=== PATIENT | female | born 1980 | race Caucasian/White ===

== ENCOUNTER 2018-05-31 18:24 | Emergency (ER) | payer BC ==
[2018-05-31 18:29] VITALS: BMI 22.8
--- NOTE | 2018-05-31 18:29 | PDOC ---
History of Present Illness - General Chief Complaint: Palpitations Stated Complaint: Palpitations Time Seen by Provider: 05/31/18 18:29 History Source: Patient Exam Limitations: No Limitations - History of Present Illness Initial Comments: 05/31/18 19:06 Pt is a 38yo F with PMH of PUD presenting to ED with complaints of palpitations , SOB and a pinching sensation in her chest which started earlier this evening. Pt states that she has had similar symptoms in the past since March 2018 after she witnessed her son having a seizure in the car. She went to [facility] ED 2 months ago with similar complaints and was discharged. Right now pt says she is not experiencing the palpitations or SOB but still has the pinchign sensation which is scattered over her chest. Denies fevers, chills, cough, pain/swelling in legs, n/v/d, syncope, headache, changes in vision. LMP May 15. Uses Nuvaring. Drinks caffeine free tea daily. Denies drug use. PMH: PUD PSH: none Meds: Prilosec Allergies: Nkda Social: denies Past History - Past Medical History Allergies/Adverse Reactions: Allergies Allergy/AdvReac Type Severity Reaction Status Date / Time No Known Allergies Allergy Verified 05/31/18 18:27 Home Medications: Ambulatory Orders NK [No Known Home Medication] 05/31/18 Cardiac Disorders: Yes (palp (neg workup)) COPD: No - Suicide/Smoking/Psychosocial Hx Smoking History: Never smoked Review of Systems - Review of Systems Constitutional: No: Chills, Fever, Loss of Appetite, Weakness HEENTM: No: Recent change in vision Respiratory: Yes: Shortness of Breath. No: Cough, Orthopnea, Wheezing Cardiac (ROS): Yes: Chest Pain, Palpitations. No: Edema, Lightheadedness, Syncope, Chest Tightness ABD/GI: No: Blood Streaked Bowels, Diarrhea, Nausea, Vomiting : No: Symptoms Reported Musculoskeletal: No: Symptoms Reported Integumentary: No: Symptoms Reported Neurological: No: Headache, Numbness, Tingling Endocrine: No: Intolerance to Cold, Intolerance to Heat *Physical Exam - Vital Signs Last Vital Signs Temp Pulse Resp BP Pulse Ox 105 H 18 125/102 H 100 05/31/18 18:27 05/31/18 18:27 05/31/18 18:27 05/31/18 18:27 - Physical Exam General Appearance: Yes: Nourished, Appropriately Dressed, Other (Tearful) HEENT: positive: EOMI, BRET, Normal ENT Inspection Neck: positive: Trachea midline, Normal Thyroid, Supple. negative: Lymphadenopathy (R), Lymphadenopathy (L) Respiratory/Chest: positive: Lungs Clear, Normal Breath Sounds. negative: Chest Tender, Crackles, Rales, Rhonchi, Stridor, Wheezing Cardiovascular: positive: Regular Rhythm, Regular Rate, S1, S2. negative: Edema , JVD, Murmur Vascular Pulses: Carotid (R): 2+, Carotid (L): 2+, Dorsalis-Pedis (R): 2+, Doralis-Pedis (L): 2+ Gastrointestinal/Abdominal: positive: Normal Bowel Sounds, Soft. negative: Guarding, Rebound, Tenderness Musculoskeletal: negative: CVA Tenderness Extremity: positive: Normal Capillary Refill Integumentary: positive: Normal Color, Dry, Warm Neurologic: positive: pediatric registered nurse II-XII NML intact, Fully Oriented, Alert, Normal Mood/ Affect, Normal Response, Motor Strength 5/5 Moderate Sedation - Procedure Monitoring Vital Signs: Procedure Monitoring Vital Signs Temperature Pulse Rate 105 H 05/31/18 18:27 Respiratory Rate 18 05/31/18 18:27 Blood Pressure 125/102 H 05/31/18 18:27 O2 Sat by Pulse Oximetry (%) 100 05/31/18 18:27 ED Treatment Course - LABORATORY CBC & Chemistry Diagram: 05/31/18 18:44 05/31/18 18:44 Medical Decision Making - Medical Decision Making 05/31/18 19:10 Pt is a 38yo F with PMH of PUD presenting to ED with complaints of palpitations , SOB and a pinching sensation in her chest which started earlier this evening. Vitals: tachycardia at 105, BP 125/102 PE: benign Ddx includes but not limited to ACS, PE, PNA, electrolyte abnormality, metabolic disturbance, anxiety, GERD -EKG: NSR. no ALIZE or depressions. HR 92 -Labs: cbc, cmp, trop, tsh, serum , d-dimer -CXR if negative 05/31/18 20:13 Serum negative. CXR ordered. Pt given 0.5 Xanax. All labs wnl. D-dimer negative. Pt does not have acute process. CXR normal, Lab normal. Low suspicions for PE, ACS, dissection, infectious process. Will repeat vital signs and DC home. Repeat vitals wnl. Pt has PMD and can follow up. Given strict return precautions. *DC/Admit/Observation/Transfer Diagnosis at time of Disposition: Palpitations - Discharge Dispostion Disposition: HOME Condition at time of disposition: Improved Decision to Admit order: No - Referrals - Patient Instructions Printed Discharge Instructions: DI for Palpitations Additional Instructions: You were seen in the emergency room for palpitations. All of the blood tests are normal. The EKG is also normal. I do not know the exact cause of your symptoms but everything is OK with your heart and lungs. I recommend making an appointment with your primary care doctor in the next week so that you can get further evaluation and management for the palpitations and pinches. You should talk to your doctor about referrals to other specialists or medications you can take to help. Come back to the emergency room if palpitations get worse, you have chest pain, you feel short of breath, you develop fever, you pass out or if any new concerning symptom develops - Post Discharge Activity
--- NOTE | 2018-05-31 18:48 | PDOC ---
Attending Attestation - Resident Resident Name: KarenAzalia - ED Attending Attestation I have performed the following: I have examined & evaluated the patient, The case was reviewed & discussed with the resident, I agree w/resident's findings & plan - [facility] HPI: 05/31/18 19:17 [id number], with a significant past medical history of PUD and GERD on Omeprazole, diet compliant, who presents to the emergency department with, palpitations and associated chest pain described as pinching sensation in her chest and body. palpitations lasted several minutes, since resolved and no longer having cp. Patient notes her symptoms have been ongoing since February when she believed her son was having a seizure in the backseat. She endorses having a negative outpatient cardiology workup done at [facility] last month. While in the ED, the patient notes her symptoms have resolved. Denies caffeine or otc herbal meds intake. Uses nuva ring for contraception, LMP 05/15/18 No leg pain/swelling, travel history or immobilization; no ribeiro/dizziness, cough or congestion, cp, sob, AP, n/v, syncope or back pain. Allergies: None Past Medical History: PUD and GERD. Social history: Lives with family. No smoking. No alcohol. No illicit drugs. Surgical history: None - Physicial Exam PE: 05/31/18 19:03 mildly anxious, tearful; PERRL, EOMI, MMM, nl conjunctiva, anicteric; neck supple. lungs clear, RRR, abdomen soft nontender. PATTERSON x4, no focal neuro deficits. No peripheral edema. normal color for ethnicity, [facility]. 05/31/18 19:15 - Medical Decision Making 05/31/18 19:18 I, Tootie Roman MD, attest that this document has been prepared under my direction and personally reviewed by me in its entirety. I further attest, that it accurately reflects all work, treatment, procedures and medical decision -making performed by me. See HPI for details DDx chest pain: ACS, coronary vasospasm, arrhythmia, unstable angina, PE, dissection, PUD, esophageal spasm, GERD, gastritis, costochondritis, pleurisy, dehydration, electrolyte/metabolic derangements, anxiety Vital signs reviewed, mildly anxious with elevated BP and HR in 90-100s. Prior notes reviewed, including admissions, discharges and consultations. laboratory results and imaging reviewed, basic labs and lytes wnl, notable for_ . dimer_neg, so unlikely dissection or PE. Cardiac panel_neg trop x1, reassuring less likely cardiac/angina EKG normal sinus rhythm, no interval abnormalities, narrow QRS, ST and T wave segments and morphology normal. HEART score zero, low suspicion/risk for MACE at 30days <1.7% ED course: xanax for anxiolysis, as pt very anxious. repeat VS normalizing. feels improved, reassurance provided PCP followup, anxiety management, stress reduction and return precautions. 05/31/18 19:21 05/31/18 19:48 Heart Score/ECG Review - History History: Slightly suspicious - Electrocardiogram EKG: Normal - Age Age: </= 45 - Risk Factors Based on the list above the patient has:: No risk factors known - Troponin Troponin: </= normal limit - Score Heart Score - Total: 0 - ECG Impressions Normal ECG: Yes Comment:: 05/31/18 19:21 EKG normal sinus rhythm, no interval abnormalities, narrow QRS, ST and T wave segments and morphology normal.
[2018-05-31 19:01] LABS: BASO % 0.7 % (0-2.0); EOS % 3.6 % (0-4.5); HEMOGLOBIN 12.3 GM/dL (10.7-15.3); LYMPH % 22.3 % (8-40); MEAN CELL VOLUME 90.9 fl (80-96); MEAN PLT VOLUME 9.8 fl (7.5-11.1); NEUT % 67.4 % (42.8-82.8); PLATELET COUNT 265 K/MM3 (134-434); RBC 3.96 M/mm3 (3.60-5.2); RDW 13.7 % (11.6-15.6); WHITE BLOOD COUNT 9.8 K/mm3 (4.0-10.0)
[2018-05-31] MEDS ORDERED: ALPRAZolam 0.25 MG TABLET PO ONE (19:14)
[2018-05-31] MEDS ORDERED: ALPRAZolam 0.25 MG TABLET ONE (19:26)
[2018-05-31 19:39] LABS: ALBUMIN 3.4 g/dl (3.4-5.0); ALK PHOS 47 U/L (45-117); ANION GAP 10 MMOL/L (8-16); BILIRUBIN,TOTAL 0.1 mg/dL (0.2-1); BLOOD UREA NITROGEN 7 mg/dL (7-18); CALCIUM 8.6 mg/dL (8.5-10.1); CHLORIDE 110 mmol/L (98-107); CO2 21 mmol/L (21-32); CREATININE 0.7 mg/dL (0.55-1.3); GLUCOSE,RANDOM 87 mg/dL (74-106); SGPT/ALT 21 U/L (13-61); SODIUM 141 mmol/L (136-145); TOT PROT 7.1 g/dl (6.4-8.2)
[2018-05-31 19:40] LABS: POTASSIUM 3.9 mmol/L (3.5-5.1); SGOT/AST 16 U/L (15-37)
[2018-05-31 20:27] VITALS: BP 125/69; PULSE 87
--- NOTE | 2018-06-02 19:30 | EKG ---
Test Reason : Blood Pressure : / mmHG Vent. Rate : 091 BPM Atrial Rate : 091 BPM P-R Int : 142 ms QRS Dur : 088 ms QT Int : 370 ms P-R-T Axes : 073 030 039 degrees QTc Int : 455 ms NORMAL SINUS RHYTHM NORMAL ECG NO PREVIOUS ECGS AVAILABLE Confirmed by MARK COSME MD ([id number]) on 06/02/2018 7:29:50 PM Referred By: Confirmed By:MARK COSME MD
== END 2018-05-31 20:36 | disposition home or self-care (01) ==
LOC: JER 18:24
DX: R00.2 Palpitations (principal)
CPT/HCPCS: 36415; 71046-TC-FY; 80053; 84443; 84484; 84703; 85025; 85379; 93005; 93010; 99283-25

== ENCOUNTER 2018-09-11 19:32 | Emergency (ER) | payer BC ==
--- NOTE | 2018-09-11 19:35 | PDOC ---
Rapid Medical Evaluation Time Seen by Provider: 09/11/18 19:33 Medical Evaluation: Allergies Allergy/AdvReac Type Severity Reaction Status Date / Time No Known Allergies Allergy Verified 05/31/18 18:27 09/11/18 19:33 I have performed a brief in-person evaluation of this patient. The patient presents with a chief complaint of: Chest tightness w/ sob and palpitations today. Had similar sxs last week that resolved. Was seen in ED for same and had neg w/u including dimer and TSH. Has since been seen by her pmd and dx w/ possible anxiety. Was referred to cards and had neg Echo per pt. Due for stress testing in 2 weeks Pertinent physical exam findings:Appears anxious, stable I have ordered the following:ekg The patient will proceed to the ED for further evaluation Discharge Disposition - Diagnosis Palpitations - Referrals - Patient Instructions - Post Discharge Activity
[2018-09-11 19:37] VITALS: TEMP 98; BMI 23.9
--- NOTE | 2018-09-11 19:42 | PDOC ---
Rapid Medical Evaluation Time Seen by Provider: 09/11/18 19:33 Medical Evaluation: Allergies Allergy/AdvReac Type Severity Reaction Status Date / Time No Known Allergies Allergy Verified 05/31/18 18:27 Vital Signs Temp Pulse Resp BP Pulse Ox 98.0 F 85 16 124/77 100 09/11/18 19:33 09/11/18 19:33 09/11/18 19:33 09/11/18 19:33 09/11/18 19:33 09/11/18 19:39 have performed a brief in-person evaluation of this patient. The patient presents with a chief complaint of: Pertinent physical exam findings: I have ordered the following: The patient will proceed to the ED for further evaluation Discharge Disposition - Diagnosis Palpitations - Referrals - Patient Instructions - Post Discharge Activity
[2018-09-11] MEDS ORDERED: hydrOXYzine PAMOATE 25 MG CAPSULE (FP) PO ONE (20:11)
[2018-09-11 20:21] LABS: BASO % 0.8 % (0-2.0); EOS % 14.1 % (0-4.5); HEMATOCRIT 39.9 % (32.4-45.2); HEMOGLOBIN 13.3 GM/dL (10.7-15.3); LYMPH % 26.2 % (8-40); MCHC 33.4 g/dl (32.0-36.0); MEAN CELL VOLUME 89.9 fl (80-96); MEAN PLT VOLUME 9.5 fl (7.5-11.1); NEUT % 51.9 % (42.8-82.8); PLATELET COUNT 326 K/MM3 (134-434); RBC 4.44 M/mm3 (3.60-5.2); RDW 13.6 % (11.6-15.6); WHITE BLOOD COUNT 9.8 K/mm3 (4.0-10.0)
--- NOTE | 2018-09-11 20:26 | PDOC ---
History of Present Illness - General Chief Complaint: Chest Pain Stated Complaint: CHEST PAIN Time Seen by Provider: 09/11/18 19:33 History Source: Patient Exam Limitations: Clinical Condition - History of Present Illness Initial Comments: 09/11/18 20:23 Patient with no significant past medical history present with complaint of chest tightness, shortness of breath, palpitation, aching abdominal pain and funny feeling in her throat since this morning. Patient reported she has been feeling symptoms intermittently for 4 months now. The patient was seen 4 months ago for symptoms and all workup was negative. Patient be followed up by cardiology and reports seeing maintenance helper 6 days ago and echogram was done which was normal. Patient reported she has been told by multiple providers diet symptoms is from anxiety. Patient is not taking any medication for anxiety or any other symptoms. Denies numbness or tingling sensation, dizziness, nausea or vomiting. Denies any other symptoms Timing/Duration: other (12hrs) Past History - Past Medical History Allergies/Adverse Reactions: Allergies Allergy/AdvReac Type Severity Reaction Status Date / Time No Known Allergies Allergy Verified 05/31/18 18:27 Home Medications: Ambulatory Orders Hydroxyzine Pamoate 25 mg PO Q6H PRN #20 capsule 09/11/18 Cardiac Disorders: Yes (palp (neg workup)) COPD: No - Immunization History Immunization Up to Date: Yes - Suicide/Smoking/Psychosocial Hx Smoking History: Never smoked Have you smoked in the past 12 months: No Information on smoking cessation initiated: No Hx Alcohol Use: No Drug/Substance Use Hx: No Review of Systems - Review of Systems Able to Perform ROS?: Yes Is the patient limited Turkish proficient: No Constitutional: No: Chills, Fever, Malaise, Weakness HEENTM: No: Symptoms Reported, See HPI, Eye Pain, Blurred Vision, Tearing, Recent change in vision, Double Vision, Cataracts, Ear Pain, Ocular Prothesis, Ear Discharge, Nose Pain, Nose Congestion, Tinnitus, Nose Bleeding, Hearing Loss , Throat Pain, Throat Swelling, Mouth Pain, Dental Problems, Difficulty Swallowing, Mouth Swelling, Other Respiratory: Yes: Symptoms reported, See HPI, Shortness of Breath, SOB with Exertion, SOB at Rest. No: Cough, Orthopnea, Stridor, Wheezing, Productive cough, Hemoptysis, Other Cardiac (ROS): Yes: Symptoms Reported, See HPI, Chest Tightness. No: Chest Pain , Edema, Irregular Heart Rate, Lightheadedness, Palpitations, Syncope, Other ABD/GI: Yes: See HPI, Abdominal cramping (aching intermittent diffused abdominal pain). No: Abd. Pain w/ defecation, Blood Streaked Bowels, Constipated, Diarrhea, Difficulty Swallowing, Nausea, Poor Appetite, Rectal Bleeding, Vomiting, Indigestion Musculoskeletal: No: Symptoms Reported Integumentary: No: Symptoms Reported Neurological: No: Symptoms reported, Headache, Numbness, Paresthesia, Tingling, Weakness, Dizziness All Other Systems: Reviewed and Negative *Physical Exam - Vital Signs Last Vital Signs Temp Pulse Resp BP Pulse Ox 98.0 F 85 16 124/77 100 09/11/18 19:33 09/11/18 20:16 09/11/18 19:33 09/11/18 19:33 09/11/18 20:16 - Physical Exam Comments: 09/11/18 20:28 GENERAL: Well developed, well nourished. Awake and alert. No acute distress. HEENT: Normocephalic, atraumatic. PERRLA, EOMI. No conjunctival pallor. Sclera are non- icteric. Moist mucous membranes. Oropharynx is clear. NECK: Supple. Full ROM. No JVD. Carotid pulses 2+ and symmetric, without bruits. No thyromegaly. No lymphadenopathy. CARDIOVASCULAR: Regular rate and rhythm. No murmurs, rubs, or gallops. Distal pulses are 2+ and symmetric. PULMONARY: No evidence of respiratory distress. Lungs clear to auscultation bilaterally. No wheezing, rales or rhonchi. ABDOMINAL: Soft. Non-tender. Non-distended. No rebound or guarding. No organomegaly. Normoactive bowel sounds. MUSCULOSKELETAL Normal range of motion at all joints. EXTREMITIES: No cyanosis. No clubbing. No edema. No calf tenderness. SKIN: Warm and dry. Normal capillary refill. No rashes. . NEUROLOGICAL: Alert, awake, appropriate. Cranial nerves 2-12 intact. Normal speech. Toes are down-going bilaterally. Gait is normal without ataxia. PSYCHIATRIC: Cooperative. Good eye contact. Appropriate mood and affect. General Appearance: Yes: Nourished, Appropriately Dressed. No: Apparent Distress ED Treatment Course - LABORATORY CBC & Chemistry Diagram: 09/11/18 20:12 09/11/18 20:12 Medical Decision Making - Medical Decision Making 09/11/18 20:26 Patient with no significant past medical history present with complaint of chest tightness, shortness of breath, palpitation, aching abdominal pain and funny feeling in her throat since this morning. Patient reported she has been feeling symptoms intermittently for 4 months now. The patient was seen 4 months ago for symptoms and all workup was negative. Patient be followed up by cardiology and reports seeing maintenance helper 6 days ago and echogram was done which was normal. Patient reported she has been told by multiple providers diet symptoms is from anxiety. Patient is not taking any medication for anxiety or any other symptoms. Denies numbness or tingling sensation, dizziness, nausea or vomiting. Denies any other symptoms Clinical exam unremarkable with normal cardio, lungs and abdominal exam. Symptoms is likely from anxiety disorder versus less likely cardiogenic origin. CBC, CMP and cardiac profile ordered. EKG shows normal sinus rhythm. Hydroxyzine promoate 25 mg by mouth given for anxiety. Reassess after lab results 09/11/18 20:57 CBC and chemistry lab unremarkable. cardiac profile wnl. Patient with improved symptom with hydroxyzine and symptoms likely anxiety related. Patient stable for discharge on hydroxyzine promoate with psychology follow-up *DC/Admit/Observation/Transfer Diagnosis at time of Disposition: Palpitations, Anxiety - Discharge Dispostion Disposition: HOME Condition at time of disposition: Stable Decision to Admit order: No - Prescriptions Prescriptions: Hydroxyzine Pamoate 25 mg PO Q6H PRN #20 capsule PRN Reason: Anxiety - Referrals Referrals: Davon Gabriel NP [Nurse Practitioner] - - Patient Instructions Printed Discharge Instructions: Anxiety Disorders Additional Instructions: Your lab and EKG was normal. Your symptoms is likely from anxiety. Take prescribed medication as needed for anxiety. Follow-up with referred therapist for better anxiety control - Post Discharge Activity
[2018-09-11 20:55] LABS: ALBUMIN 3.6 g/dl (3.4-5.0); ALK PHOS 53 U/L (45-117); ANION GAP 5 MMOL/L (8-16); BILIRUBIN,TOTAL 0.2 mg/dL (0.2-1); BLOOD UREA NITROGEN 15 mg/dL (7-18); CHLORIDE 109 mmol/L (98-107); CO2 26 mmol/L (21-32); CREATININE 0.8 mg/dL (0.55-1.3); GLUCOSE,RANDOM 101 mg/dL (74-106); POTASSIUM 4.2 mmol/L (3.5-5.1); SGOT/AST 14 U/L (15-37); SGPT/ALT 29 U/L (13-61); SODIUM 139 mmol/L (136-145); TOT PROT 7.7 g/dl (6.4-8.2)
[2018-09-11 21:26] VITALS: BP 124/72; PULSE 82
--- NOTE | 2018-09-12 13:40 | EKG ---
Test Reason : Blood Pressure : / mmHG Vent. Rate : 085 BPM Atrial Rate : 085 BPM P-R Int : 136 ms QRS Dur : 094 ms QT Int : 386 ms P-R-T Axes : 040 043 046 degrees QTc Int : 459 ms NORMAL SINUS RHYTHM NORMAL ECG WHEN COMPARED WITH ECG OF 31-MAY-2018 18:42, NO SIGNIFICANT CHANGE WAS FOUND Confirmed by RUMA AMARO MD ([id number]) on 09/12/2018 1:40:20 PM Referred By: Confirmed By:RUMA AMARO MD
== END 2018-09-11 21:26 | disposition home or self-care (01) ==
LOC: JER 19:32
DX: R00.2 Palpitations (principal); F41.9 Anxiety disorder, unspecified
CPT/HCPCS: 36415; 80053; 82550; 84484; 85025; 93005; 93010; 99282-25

== ENCOUNTER 2019-11-12 19:30 | Emergency (ER) | payer BC ==
[2019-11-12 19:39] VITALS: TEMP 98.6; BMI 24.7
--- NOTE | 2019-11-12 20:05 | PDOC ---
Attending Attestation - Resident Resident Name: Giacomo Campbell - ED Attending Attestation I have performed the following: I have examined & evaluated the patient, The case was reviewed & discussed with the resident, I agree w/resident's findings & plan - HPI HPI: 11/12/19 21:26 see resident hpi - Physicial Exam PE: 11/12/19 21:26 see resident exam - Medical Decision Making 11/12/19 21:26 39-year-old female with an episode of shortness of breath and lightheadedness while driving in the car now resolved Seen at urgent care and sent in for a d-dimer Outpatient chest x-ray was within normal limits, results are available provided by the patient EKG within normal limits At this time patient feels well, we will provide outpatient primary care cardiology and [facility] follow-up at her request She has been advised to return to the emergency department should she develop any new symptoms or have any new concerns Discharge - Discharge Information Problems reviewed: Yes Clinical Impression/Diagnosis: Dyspnea Qualifiers: Dyspnea type: unspecified Qualified Code(s): R06.00 - Dyspnea, unspecified - Follow up/Referral - Patient Discharge Instructions - Post Discharge Activity
[2019-11-12] MEDS ORDERED: SODIUM CHLORIDE 0.9% 500 ML INFUS.BAG IV ONE (20:12)
--- NOTE | 2019-11-12 20:18 | PDOC ---
History of Present Illness - General Chief Complaint: Shortness of Breath Stated Complaint: SENT BY DOC Time Seen by Provider: 11/12/19 19:43 History Source: Patient Exam Limitations: No Limitations - History of Present Illness Initial Comments: Stephani is a 39 yo F w a hx of anxiety who denies having any pmh who presents to the [facility] er sent from urgent care to obtain a D-dimer in the ED bc urgent care does not have that laboratory. The patient reports that earlier today at 4 pm she was in the car driving with her when all of a sudden she felt short of breath for around 30 minutes and felt like she was going to pass out. The sensation subsided on its own prior to the patient arriving at urgent care. Urgent care took a chest xr, did an ekg and basic labs which were all within normal limits. Then urgent care sent the patient here for D-Dimer to r/o PE. The patient has been asymptomatic since 430 pm today. She does have NuvaRing for contraception. Patient started having her period today. Denies current chest pain, SOB, difficulty breathing. The patient denies recent travel/surgeries/immobility, lower extremity edema, calf pain or tenderness, tobacco use, hormone use (other than NuvaRing), personal or family history of thrombosis. LMP: Currently on it. Started bleeding today. PCP: [facility] PSH: None reported Allergies: NKA, NKDA Social Hx: Denies smoking, drinking, or other substance abuse Past History - Medical History Allergies/Adverse Reactions: Allergies Allergy/AdvReac Type Severity Reaction Status Date / Time No Known Allergies Allergy Verified 11/12/19 19:36 Home Medications: Ambulatory Orders Hydroxyzine Pamoate 25 mg PO Q6H PRN #20 capsule 09/11/18 Cardiac Disorders: Yes (palp (neg workup)) COPD: No - Immunization History Immunization Up to Date: Yes - Psycho-Social/Smoking History Smoking History: Never smoked Have you smoked in the past 12 months: No - Substance Abuse Hx (Audit-C & DAST Scrn) How often the patient has a drink containing alcohol: Never Score: In Men: 4 or > Positive; In Women: 3 or > Positive: 0 Screen Result (Pos requires Nsg. Audit-10AR): Negative In the last yr the pt used illegal drug/Rx for NonMed reason: No Score: Yes response is considered Positive: 0 Screen Result (Positive result requires Nsg. DAST-10): Negative Review of Systems - Review of Systems Comments:: CONSTITUTIONAL: Absent: fever, no chills, no fatigue EYES: Absent: visual changes ENT: Absent: ear pain, no sore throat CARDIOVASCULAR: Absent: chest pain, no palpitations RESPIRATORY: Present: SOB Absent: cough GI: Absent: abdominal pain, no nausea, no vomiting, no constipation, no diarrhea GENITOURINARY: Absent: dysuria, no frequency, no hematuria MUSKULOSKELETAL: Absent: back pain, no arthralgia, no myalgia SKIN: Absent: rash NEURO: Absent: headache *Physical Exam - Vital Signs Last Vital Signs Temp Pulse Resp BP Pulse Ox 98.6 F 83 18 114/60 99 11/12/19 19:32 11/12/19 19:32 11/12/19 19:32 11/12/19 19:32 11/12/19 19:32 - Physical Exam GENERAL: Well-appearing, well-nourished. No apparent distress. HEENT: Normocephalic, atraumatic. PERRL, EOM intact. CARDIOVASCULAR: Normal S1, S2. Regular rate and rhythm. PULMONARY: No evidence of respiratory distress. Lungs clear to auscultation bilaterally. No wheezing, rales or rhonchi. ABDOMEN: Soft, non-distended, non-tender. EXTREMITIES: Normal ROM in all four extremities. No gross deformities. SKIN: Warm, dry. No rash NEUROLOGICAL: No focal neurological deficits. ED Treatment Course - LABORATORY CBC & Chemistry Diagram: 11/12/19 20:15 11/12/19 20:15 Medical Decision Making - Medical Decision Making Stephani is a 39 yo F w a hx of anxiety who denies having any pmh who presents to the [facility] er sent from urgent care to obtain a D-dimer in the ED urgent care does not have that laboratory. The patient reports that earlier today at 4 pm she was in the car driving with her when all of a sudden she felt short of breath for around 30 minutes and felt like she was going to pass out. The sensation subsided on its own prior to the patient arriving at urgent care. Urgent care took a chest xr, did an ekg and basic labs which were all within normal limits. Then urgent care sent the patient here for D-Dimer to r/o PE. The patient has been asymptomatic since 430 pm today. She does have NuvaRing for contraception. Patient started having her period today. Denies current chest pain, SOB, difficulty breathing. The patient denies recent travel/surgeries/immobility, lower extremity edema, calf pain or tenderness, tob acco use, hormone use (other than NuvaRing), personal or family history of thrombosis. LMP: Currently on it. Started bleeding today. Vital Signs Temp Pulse Resp BP Pulse Ox 98.6 F 80 18 114/60 100 11/12/19 19:32 11/12/19 20:10 11/12/19 19:32 11/12/19 19:32 11/12/19 20:10 DDx IBNLT: Low likelihood for PE, ACS, electrolyte/metabolic disturbance MDM: Patient cannot be PERC'ed out bc she is on the NuvaRing. She is wells score 0. Will obtain D-Dimer to r/o PE. Labs: Unremarkable. Trop negative. D-Dimer WNL. Re-assessment: Patient persistently asymptomatic since 430 pm today The patient appears clinically sober, is A&O x4, and appears to be capable and have capacity to make reasonable decisions. The patient states they are currently in the emergency department, knows who the president is, states the correct time, correct day, and correct month. The patient is ambulatory in ER and has walked around the nursing station multiple times with a straight gait, and is not ataxic. Tolerating PO well, ate a sandwich and drank juice. Denies having any SI or HI. Patient states will not be driving home. I discussed the physical exam findings, ancillary test results and final diagnoses with the patient. I answered all of the patient's questions. The patient was satisfied with the care received and felt comfortable with the discharge plan and treatment plan. The patient will call their primary care physician within 24 hours to arrange follow-up and will return to the Emergency Department with any new, persistent or worsening symptoms. Dispo: Home with PCP sarthak, CALLIE rebolledo Please note, this clinical encounter is taking place during a federal and state health care emergency attributable to the novel Estrada Virus pandemic. The [employer] of the Department of Health and Human Services has declared, pursuant to the Public Health Service Act 319F-3 (42 U.S.C. 247d-6d), that a covered persons activities related to medical countermeasures against COVID-19 will be immune from liability under Federal and State law. Discharge - Discharge Information Problems reviewed: Yes Clinical Impression/Diagnosis: Dyspnea Qualifiers: Dyspnea type: unspecified Qualified Code(s): R06.00 - Dyspnea, unspecified Condition: Improved Disposition: HOME - Admission No - Follow up/Referral Ref[place]: [facility] [place] [facility] [place] Group] [facility] [Provider Group] Chin Campos MD [Staff Physician] - Viviane Palacios MD [Staff Physician] - - Patient Discharge Instructions Patient Printed Discharge Instructions: DI for Shortness of Breath Additional Instructions: You came into the ER from urgent care for a D-dimer. We tested your D-Dimer and it was normal. You must return to the Emergency Department with any new complaints, if your symptoms persist and do not improve or if you develop any other new or worsening concerns. As discussed, please call to follow up with the 3 doctors (primary care - cardiology - OBGYN) we are referring you to in 1-2 days to discuss what happened to you in the emergency room, and make sure you are being looked after and taken care of. Your emergency room visit is not complete without these follow up appointments. Thank you for coming to the [facility]. We hope you feel better soon! Print Language: ARABIC - Post Discharge Activity
[2019-11-12 20:43] LABS: BASO % 0.4 % (0-2.0); EOS % 0.7 % (0-4.5); HEMATOCRIT 37.7 % (32.4-45.2); HEMOGLOBIN 12.3 GM/dL (10.7-15.3); LYMPH % 10.9 % (8-40); MCHC 32.5 g/dl (32.0-36.0); MEAN CELL VOLUME 92.1 fl (80-96); MEAN PLT VOLUME 9.5 fl (7.5-11.1); MONO % 2.9 % (3.8-10.2); NEUT % 85.1 % (42.8-82.8); PLATELET COUNT 340 K/MM3 (134-434); RDW 12.9 % (11.6-15.6); WHITE BLOOD COUNT 12.3 K/mm3 (4.0-10.0)
[2019-11-12 21:14] LABS: ALBUMIN 3.6 g/dl (3.4-5.0); ALK PHOS 50 U/L (45-117); ANION GAP 8 MMOL/L (8-16); BILIRUBIN,TOTAL 0.2 mg/dL (0.2-1); BLOOD UREA NITROGEN 10.6 mg/dL (7-18); CALCIUM 9.1 mg/dL (8.5-10.1); CHLORIDE 108 mmol/L (98-107); CO2 24 mmol/L (21-32); CREATININE 0.7 mg/dL (0.55-1.3); GLUCOSE,RANDOM 119 mg/dL (74-106); POTASSIUM 4.1 mmol/L (3.5-5.1); SGOT/AST 13 U/L (15-37); SGPT/ALT 18 U/L (13-61); SODIUM 141 mmol/L (136-145); TOT PROT 7.6 g/dl (6.4-8.2)
[2019-11-12 21:38] VITALS: BP 122/71; PULSE 75
--- NOTE | 2019-11-13 14:07 | EKG ---
Test Reason : Blood Pressure : / mmHG Vent. Rate : 075 BPM Atrial Rate : 075 BPM P-R Int : 140 ms QRS Dur : 088 ms QT Int : 392 ms P-R-T Axes : 031 031 036 degrees QTc Int : 437 ms NORMAL SINUS RHYTHM NORMAL ECG WHEN COMPARED WITH ECG OF 03-OCT-2019 01:13, NO SIGNIFICANT CHANGE WAS FOUND Confirmed by RUMA AMARO MD ([id number]) on 11/13/2019 2:06:34 PM Referred By: Confirmed By:RUMA AMARO MD
== END 2019-11-12 21:40 | disposition home or self-care (01) ==
LOC: JER 19:30
DX: R06.00 Dyspnea, unspecified (principal)
CPT/HCPCS: 36415; 80053; 84484; 84703; 85025; 85379; 93005; 93010; 99284-25

== ENCOUNTER 2021-02-11 23:38 | Emergency (ER) | payer BC ==
[2021-02-11 23:52] VITALS: BP 148/77; PULSE 82; TEMP 97; BMI 24.7
[2021-02-12 00:45] LABS: BASO % 1.2 % (0-2.0); EOS % 13.8 % (0-4.5); HEMOGLOBIN 13.3 GM/dL (10.7-15.3); LYMPH % 30.5 % (8-40); MCH 30.8 pg (25.7-33.7); MCHC 33.2 g/dl (32.0-36.0); MEAN CELL VOLUME 92.8 fl (80-96); MEAN PLT VOLUME 9.1 fl (7.5-11.1); MONO % 8.5 % (3.8-10.2); PLATELET COUNT 275 10^3/uL (134-434); RBC 4.31 M/mm3 (3.60-5.2); RDW 13.6 % (11.6-15.6); WHITE BLOOD COUNT 11.9 K/mm3 (4.0-10.0)
[2021-02-12 01:04] LABS: CHLORIDE 108 mmol/L (98-107); SODIUM 140 mmol/L (136-145)
[2021-02-12 01:06] LABS: ANION GAP 8 MMOL/L (8-16); CALCIUM 8.9 mg/dL (8.5-10.1); CO2 24 mmol/L (21-32)
[2021-02-12 01:07] LABS: BLOOD UREA NITROGEN 11.4 mg/dL (7-18); GLUCOSE,RANDOM 89 mg/dL (74-106)
[2021-02-12 01:09] LABS: SGPT/ALT 19 U/L (13-61)
[2021-02-12 01:10] LABS: CREATININE 0.8 mg/dL (0.55-1.3); SGOT/AST 9 U/L (15-37)
[2021-02-12 01:11] LABS: BILIRUBIN,TOTAL 0.3 mg/dL (0.2-1); TOT PROT 8.1 g/dl (6.4-8.2)
[2021-02-12 01:12] LABS: ALK PHOS 57 U/L (45-117)
== END 2021-02-12 01:58 | disposition home or self-care (01) ==
LOC: JER 23:38
DX: R07.89 Other chest pain (principal); K21.9 Gastro-esophageal reflux disease without esophagitis; R14.1 Gas pain
CPT/HCPCS: 36415; 71046-TC-FY; 80053; 82550; 84484; 84703; 85025; 93005; 93010; 99284-25